=== PATIENT | male | born 1960 | race Caucasian/White ===

== ENCOUNTER 2025-10-01 18:16 | Inpatient (IN) | payer BC, MEDICARE, OTHER ==
[~2025-10-01] VITALS: Ht 175.3 cm; Wt 81.8 kg
[~2025-10-01 18:16] MED LIST: CRES20TA2 PO; GLUC1VIA14 SQ; INSUDET SC; INSUH10VL SC; LISI40TA52 PO; NOVOINJ3 SC
[2025-10-01] MEDS ORDERED: TRES1INJ2 SC (18:32)
[2025-10-01] MEDS ORDERED: ROSU20TA86 PO (18:32)
[2025-10-01] MEDS ORDERED: CLOP75TA2 PO (18:32)
[2025-10-01] MEDS ORDERED: DULO1CAP6 PO (18:32)
[2025-10-01] MEDS ORDERED: ISOVUE-370 76% 100 ML VIAL As Ordered ONE (18:36)
[2025-10-01 19:07] LABS: BASO # 0.1 10^3/uL (0.0-0.2); BASO % 0.7 % (0.0-1.0); EOS # 0.1 10^3/uL (0.0-0.5); EOS % 1.4 % (0.0-3.0); LYMPH # 2.4 10^3/uL (1.5-5.0); LYMPH % 23.9 % (24.0-44.0); MONO # 1.1 10^3/uL (0.0-0.8); MONO % 10.7 % (2.0-8.0); NEUTROPHILS # 6.4 10^3/uL (1.5-8.5); NEUTROPHILS % 62.8 % (36.0-66.0); PLATELET COUNT, AUTOMATED 346 10^3/uL (150-450)
[2025-10-01 19:32] LABS: INR 0.95
[2025-10-01] MEDS ORDERED: VITA100093 PO (19:34)
[2025-10-01] MEDS ORDERED: GABA-1172 PO (19:34)
[2025-10-01] MEDS ORDERED: AMLO1TAB25 PO (19:34)
[2025-10-01] MEDS ORDERED: NEBI5TAB2 PO (19:34)
[2025-10-01] MEDS ORDERED: FIAS100I2 SUBQ (19:34)
[2025-10-01] MEDS ORDERED: ECOT81TA5 PO (19:34)
[2025-10-01] MEDS ORDERED: HYDR-3490 PO (19:34)
[2025-10-01 20:16] LABS: MAGNESIUM LEVEL 2.5 MG/DL (1.8-2.4)
[2025-10-01 21:01] LABS: CALCIUM LEVEL 8.9 MG/DL (8.3-10.6); CARBON DIOXIDE LEVEL 23.0 MMOL/L (20-31); CHLORIDE LEVEL 108.0 MMOL/L (98-107); CREATININE FOR GFR 2.67 MG/DL (0.70-1.30); GLOMERULAR FILTRATION RATE 25.7 (>49); POTASSIUM SERUM 6.0 MMOL/L (3.5-5.1); SODIUM LEVEL 141.0 MMOL/L (136-145)
[2025-10-01] MEDS: ACETAMINOPHEN *IV* 1,000 MG in IV 1 EA IV ONE (21:22)
[2025-10-01] MEDS ORDERED: GLUCOSE 4 GM CHEW PO PRN (23:35)
[2025-10-01] MEDS ORDERED: GLUCAGON INJ 1 MG VIAL SC PRN (23:35)
[2025-10-01] MEDS ORDERED: DEXTROSE 50% 50 ML SYRINGE IV PRN (23:35)
[2025-10-02] MEDS: CALCIUM GLUCONATE 1,000 MG in DEXTROSE 5% (D5W) MINI-BAG PLU 100 ML IV ONE (00:54)
[2025-10-02 01:39] LABS: CREATININE FOR GFR 2.56 MG/DL (0.70-1.30); GLOMERULAR FILTRATION RATE 27.0 (>49)
[2025-10-02 01:41] LABS: INR 0.91
[2025-10-02] MEDS: NS (Normal Saline) 0.9% 1,000 ML IV SCH (02:06)
[2025-10-02 03:00] VITALS: BP 161/78; TEMP 98.6; O2SAT 93
[2025-10-02 03:25] VITALS: BP 142/62
[2025-10-02 06:31] LABS: PLATELET COUNT, AUTOMATED 306 10^3/uL (150-450)
[2025-10-02 07:10] LABS: ALT/SGPT 26 U/L (7.0-40); AST/SGOT 17 U/L (<34); CALCIUM LEVEL 8.8 MG/DL (8.3-10.6); CARBON DIOXIDE LEVEL 23 MMOL/L (20-31); CHLORIDE LEVEL 109 MMOL/L (98-107); CHOLESTEROL LEVEL 154 MG/DL (<200); CHOLESTEROL RISK RATIO 3.29 (<5); CREATININE FOR GFR 2.27 MG/DL (0.70-1.30); GLOMERULAR FILTRATION RATE 31.2 (>49); LDL CHOLESTEROL 48.2 MG/DL (<100); NON-HDL-C 107.2 MG/DL; POTASSIUM SERUM 4.7 MMOL/L (3.5-5.1); SODIUM LEVEL 140 MMOL/L (136-145); TRIGLYCERIDES LEVEL 295 MG/DL (<150)
[2025-10-02 07:57] LABS: POTASSIUM RANDOM URINE 15.0 MMOL/L; SODIUM,RANDOM URINE 100.0 MMOL/L
[2025-10-02 08:13] LABS: ESTIMATED AVERAGE GLUCOSE 197.0 MG/DL (60-110)
[2025-10-02] MEDS: INSULIN LISPRO (NovoLOG) PER UNIT SC SCH ×2 (08:46→21:00)
[2025-10-02] MEDS: ACETAMINOPHEN 325 MG TAB PO SCH (08:47)
[2025-10-02] MEDS: ATORVASTATIN 20 MG TAB PO SCH (08:52)
[2025-10-02] MEDS: ASPIRIN 81 MG CHEWABLE TABLET PO SCH (08:52)
[2025-10-02] MEDS ORDERED: LISI20TA33 PO (08:56)
[2025-10-02] MEDS ORDERED: HOME MED LIST COMPLETE! XX SCH (09:00)
[2025-10-02] MEDS ORDERED: ASPI1CAP3 PO (09:17)
[2025-10-02] MEDS: LanTUS (INSULIN GLARGINE INJ) 1 UNITS/0.01 ML SC SCH (09:24)
[2025-10-02] MEDS: GABAPENTIN 300 MG CAP PO SCH (10:21)
[2025-10-02 11:31] LABS: FREE T4 1.10 NG/DL (0.89-1.76)
[2025-10-02 12:00] VITALS: BP 161/73; TEMP 98.2; O2SAT 97
[2025-10-02] MEDS: amLODIPine 10 MG TAB PO SCH (12:14)
[2025-10-02] MEDS: CLOPIDOGREL 75 MG TAB PO ONE (12:15)
[2025-10-02] MEDS: INSULIN LISPRO (NovoLOG) PER UNIT SC ONE ×2 (14:07→17:42)
[2025-10-02] MEDS: HEPARIN SOD 5000 UNITS/ML 1 ML VIAL/SYRINGE SQ SCH (14:07)
[2025-10-02 16:47] VITALS: BP 142/60
[2025-10-02 19:52] VITALS: BP 118/58; TEMP 98.6; O2SAT 96
[2025-10-03 04:06] VITALS: BP 131/64; TEMP 98.7; O2SAT 95
[2025-10-03 07:30] LABS: BASO # 0.1 10^3/uL (0.0-0.2); BASO % 0.8 % (0.0-1.0); EOS # 0.3 10^3/uL (0.0-0.5); EOS % 4.3 % (0.0-3.0); LYMPH # 2.0 10^3/uL (1.5-5.0); LYMPH % 26.5 % (24.0-44.0); MONO # 0.8 10^3/uL (0.0-0.8); MONO % 9.9 % (2.0-8.0); NEUTROPHILS # 4.5 10^3/uL (1.5-8.5); NEUTROPHILS % 58.1 % (36.0-66.0); PLATELET COUNT, AUTOMATED 294 10^3/uL (150-450)
[2025-10-03 07:57] LABS: CALCIUM LEVEL 8.2 MG/DL (8.3-10.6); CARBON DIOXIDE LEVEL 23.0 MMOL/L (20-31); CHLORIDE LEVEL 114.0 MMOL/L (98-107); CREATININE FOR GFR 1.78 MG/DL (0.70-1.30); GLOMERULAR FILTRATION RATE 41.8 (>49); POTASSIUM SERUM 4.9 MMOL/L (3.5-5.1); SODIUM LEVEL 144.0 MMOL/L (136-145)
[2025-10-03 08:06] VITALS: BP 149/68
[2025-10-03] MEDS: CLOPIDOGREL 75 MG TAB PO SCH (08:07)
[2025-10-03] MEDS ORDERED: HYDR25TA88 PO (09:21)
[2025-10-03] MEDS ORDERED: ATOR80TA59 PO (09:21)
== END 2025-10-03 11:56 | disposition home or self-care (01) | DRG 69 ==
LOC: M ED 18:16 → M ED INP 23:15 → M MSPAV 10-02 02:54
PROVIDERS: ADMIT Student in an Organized Health Care Education/Training Program; ATTEND Internal Medicine
PROC: B246ZZZ Ultrasonography of Right and Left Heart (ICD-10-PCS; principal; 2025-10-02)
DX: G45.9 Transient cerebral ischemic attack, unspecified (principal); N17.9 Acute kidney failure, unspecified; T44.7X5A Adverse effect of beta-adrenoreceptor antagonists, initial encounter; R51.9 Headache, unspecified; E11.22 Type 2 diabetes mellitus with diabetic chronic kidney disease; I12.9 Hypertensive chronic kidney disease with stage 1 through stage 4 chronic kidney disease, or unspecified chronic kidney disease; R42 Dizziness and giddiness; R00.1 Bradycardia, unspecified; N18.32 Chronic kidney disease, stage 3b; E87.5 Hyperkalemia; E78.5 Hyperlipidemia, unspecified; D64.9 Anemia, unspecified; E11.40 Type 2 diabetes mellitus with diabetic neuropathy, unspecified; Z79.4 Long term (current) use of insulin; Z79.899 Other long term (current) drug therapy; Z79.82 Long term (current) use of aspirin; Z79.02 Long term (current) use of antithrombotics/antiplatelets; Z86.73 Personal history of transient ischemic attack (TIA), and cerebral infarction without residual deficits

== ENCOUNTER → 2025-10-03 | Outpatient (CLI) | payer MEDICARE ==
[~2025-10-03] MED LIST changes: +AMLO1TAB25 PO; +ASPI1CAP3 PO; +ATOR80TA59 PO; +CLOP75TA2 PO; +DULO1CAP6 PO; +ECOT81TA5 PO; +FIAS100I2 SUBQ; +GABA-1172 PO; +HYDR-3490 PO; +HYDR25TA88 PO; +LISI20TA33 PO; +NEBI5TAB2 PO; +ROSU20TA86 PO; +TRES1INJ2 SC; +VITA100093 PO
== END ==
LOC: M EKG 11:58
PROVIDERS: ATTEND Internal Medicine
DX: Z86.73 Personal history of transient ischemic attack (TIA), and cerebral infarction without residual deficits (principal); Z53.9 Procedure and treatment not carried out, unspecified reason